=== PATIENT | male | born 1945 | race Two or more races ===

== ENCOUNTER 2019-08-17 10:01 | Outpatient (CLI) | payer OTHER | END 2019-08-17 10:30 | disposition home or self-care (01) | LOC: TOM 10:01 | DX: K40.90 Unilateral inguinal hernia, without obstruction or gangrene, not specified as recurrent (principal) | CPT/HCPCS: 74177; Q9965 ==

== ENCOUNTER 2021-12-10 10:00 | Outpatient (CLI) | payer OTHER | END 2021-12-10 10:01 | disposition home or self-care (01) | LOC: SONOGRAMA 10:00 | PROVIDERS: ATTEND Pathology Anatomic Pathology & Clinical Pathology | DX: D34 Benign neoplasm of thyroid gland (principal) ==